=== PATIENT | female | born 1985 | race Asian ===

== ENCOUNTER 2022-01-23 11:26 | Emergency (ER) | payer OTHER ==
[~2022-01-23] VITALS: Ht 160 cm; Wt 86.2 kg
[2022-01-23 12:42] VITALS: BP 123/66
--- NOTE | 2022-01-23 12:45 | PHYS DOC ---
Past History Additional Past Medical Histor: high BP with . Past Surgical History: Cholecystectomy Alcohol Use: None General Adult EDM: Chief Complaint: OVERDOSE HPI: HPI: 37-year-old female presents with concerns of taking too much of her nifedipine. Reports taking her normal dose at 11 PM last night and accidentally took a second dose at 9 AM this morning. Patient reports she felt dizzy immediately after and took her blood pressure at home which was lower for her than normal. Patient is currently 19 weeks , G5, P3. Patient's denying chest pain, shortness of breath, dizziness. No abdominal pain. Only medical history is hypertension. Review of Systems: Review of Systems: ROS At least 10 ROS systems have been reviewed and are negative except as documented in the HPI. General: Negative except as outlined in HPI above. Skin: Negative except as outlined in HPI above. HEENT: Negative except as outlined in HPI above. Neck: Negative except as outlined in HPI above. Respiratory: Negative except as outlined in HPI above.. Cardiovascular: Negative except as outlined in HPI above. Abdomen: Negative except as outlined in HPI above. : Negative except as outlined in HPI above. Back/MSK: Negative except as outlined in HPI above. Neuro: Negative except as outlined in HPI above. Psych: Negative except as outlined in HPI above. Allergies: Allergies: Allergies Uncoded Allergies Type Severity Reaction Last Updated Verified nuts Allergy Intermediate 01/23/22 Physical Exam: PE: Constitutional: Well developed, well nourished, no acute distress, non-toxic appearance. [] HENT: bilateral external ears normal, oropharynx moist, no oral exudates, nose normal. [] Eyes: conjunctiva normal, no discharge. [] Neck: Normal range of motion, no tenderness, supple, no stridor. [] Cardiovascular:Heart rate regular rhythm, no murmur [] Lungs & Thorax: Bilateral breath sounds clear to auscultation [] Abdomen: Bowel sounds normal, soft, no tenderness, no masses Skin: Warm, dry, no erythema, no rash. [] Back: No tenderness, no CVA tenderness. [] Extremities: No tenderness, no cyanosis, no clubbing, ROM intact, no edema. [] Neurologic: Alert and oriented X 3, normal motor function, normal sensory function, no focal deficits noted. [] Psychologic: Affect normal, judgement normal, mood normal. [] Current Patient Data: Vital Signs: Vital Signs Date Time Temp Pulse Resp B/P (MAP) Pulse Ox O2 Delivery O2 Flow Rate FiO2 01/23/22 11:37 98.4 107 140/83 (102) 100 Room Air EKG: EKG: [] Radiology/Procedures: Radiology/Procedures: [] Heart Score: C/O Chest Pain: No Risk Factors: Risk Factors: DM, Current or recent (<one month) smoker, HTN, HLP, family history of CAD, obesity. Risk Scores: Score 0 - 3: 2.5% MACE over next 6 weeks - Discharge Home Score 4 - 6: 20.3% MACE over next 6 weeks - Admit for Clinical Observation Score 7 - 10: 72.7% MACE over next 6 weeks - Early Invasive Strategies Course & Med Decision Making: Course & Med Decision Making Pertinent Labs and Imaging studies reviewed. (See chart for details) [] 37-year-old female presents with concerns of taking too much of her nifedipine. Reports taking her normal dose at 11 PM last night and accidentally took a second dose at 9 AM this morning. At 1213 Poison control was contacted. Poison control did not suggest any interventions. Patient's vital signs are within normal range. Last blood pressure taken was 120/76. Heart rate 98. Patient is denying all symptoms at this time. heart tones bpm Spoke with OB office. OB office suggested patient withhold her scheduled dose for tonight and resume tomorrow evening. Suggested patient check her blood pressure at home. Patient's OB advised patient to call office if blood pressure is over 135 systolic. Gibson return precautions in length with patient. Patient verbalizes understanding of discharge instructions and follow-up. Patient is hemodynamically stable upon disposition. Patient is appreciative and agrees with discharge plan. Dragon Disclaimer: Dragon Disclaimer: This electronic medical record was generated, in whole or in part, using a voice recognition dictation system. Departure Departure: Impression: Primary Impression: Blood pressure decreased Disposition: HOME / SELF CARE / HOMELESS Condition: STABLE Referrals: CARLOS GOODWIN DO, [facility] (PCP) Patient Instructions: Hypotension Additional Instructions: You were seen in the emergency room for concerns of taking too much of your blood pressure medicine. Poison control was contacted along with your OB. Make sure that you do not take another dose of your blood pressure medication until tomorrow evening as scheduled. Do not take another dose this evening. If you start having chest pain, shortness of breath, dizziness please return to the emergency room. Please contact your OB as directed for blood pressures over 139 systolic. Make sure you are drinking plenty of fluids. EMERGENCY DEPARTMENT GENERAL DISCHARGE INSTRUCTIONS Thank you for coming to [facility] (ED) today and trusting us with you care. We trust that you had a positivie experience in our Emergency Department. If you wish to speak to the department management, you may call the director at [phone]. YOUR FOLLOW UP INSTRUCTIONS ARE FOLLOWS: 1. Do you have a private Doctor? If you do not have a private doctor, please ask for a resource list of physicians or clinics that may be able to assist you with follow up care. 2. The Emergency Physician has interpreted your x-rays. The X-Ray specialist will also review them. If there is a change in the findings, you will be notified in 48 hours when at all possible. 3. A lab test or culture has been done, your results will be reviewed and you will be notified if you need a change in treatment. ADDITIONAL INSTRUCTIONS AND INFORMATION: 1. Your care today has been supervised by a physician who is specially trained in emergency care. Many problems require more than one evaluation for a complete diagnosis and treatment. We recommend that you schedule your follow up appointment as recommended to ensure complete treatment of you illness or injury. If you are unable to obtain follow up care and continue to have a problem, or if your condition worsens, we recommend that you return to the ED. 2. We are not able to safely determine your condition over the phone nor are we able to give sound medical advice over the phone. For these safety reasons, if you call for medical advice we will ask you to come to the ED for further evaluation. 3. If you have any questions regarding these discharge instructions please call the ED at [phone]. SAFETY INFORMATION: In the interest of safety, wellness, and injury prevention; we encourage you to wear your sealbelt, if you smoke; quite smoking, and we encourage family to use a protective helmet for bicycling and other sporting events that present an increased risk for head injury. IF YOUR SYMPTOMS WORSEN OR NEW SYMPTOMS DEVELOP, OR YOU HAVE CONCERNS ABOUT YOUR CONDITION; OR IF YOUR CONDITION WORSENS WHILE YOU ARE WAITING FOR YOUR FOLLOW UP APPOINTMENT; EITHER CONTACT YOUR PRIMARY CARE DOCTOR, THE PHYSICIAN WHOSE NAME AND NUMBER YOU WERE GIVEN, OR RETURN TO THE ED IMMEDIATELY. MONICA SALAS APRN Jan 23, 2022 12:45
== END 2022-01-23 13:00 | disposition home or self-care (01) ==
LOC: ER 11:26
DX: O26.52 Maternal hypotension syndrome, second trimester (principal); Z3A.19 19 weeks gestation of pregnancy; Z91.018 Allergy to other foods
CPT/HCPCS: 99281